=== PATIENT | female | born 1975 | race Caucasian/White ===

== ENCOUNTER 2017-03-28 20:55 | Observation (INO) | payer OTHER ==
[~2017-03-28] VITALS: Ht 177.8 cm; Wt 80.3 kg
[2017-03-28] MEDS ORDERED: CHOL100043 PO (22:30)
[2017-03-28] MEDS ORDERED: SUMA5SPR NS (22:32)
[2017-03-28] MEDS ORDERED: ONDA4TAB9 PO (22:34)
[2017-03-28] MEDS ORDERED: LEVO500C PO (22:35)
[2017-03-28 22:36] VITALS: BP 159/87; PULSE 87; RESP 22; O2SAT 98
[2017-03-28] MEDS ORDERED: Alum-Mag Hydrox-Simeth 30 mL Suspension PO PRN (23:15)
[2017-03-28] MEDS ORDERED: HYDROcodone-APAP 5-325 mg Tablet PO PRN (23:15)
[2017-03-28] MEDS ORDERED: Polyethylene Glycol (PEG) 17 Gm Powder PO PRN (23:15)
[2017-03-28] MEDS ORDERED: HYDROmorphone 1 mg/mL Inj IVPUSH PRN (23:20)
--- NOTE | 2017-03-28 23:34 | PCM.HPMED ---
Subjective Date of Service March 28, 2017 Primary Provider: Admitting Physician: Norberto Osman MD Primary Care Physician: Attending Physician: Norberto Osman MD Chief Complaint: nausea and vomiting History of Present Illness: 41-year-old female with history of cyclic vomiting syndrome presents from [facility] for nausea and vomiting 3 days. Patient was somewhat unwilling to answer questions, but denies any associated fevers, chest pain, shortness of breath, or diarrhea. She reports it came on gradually about 3 days ago, denies any known triggers. Reports she continues to use marijuana to help with her symptoms daily. She reports periumbilical abdominal pain. At [facility] she was given Dilaudid and Zofran, which she reports only mildly helped her symptoms. She also did receive Haldol which moderately improved her symptoms. She reports she was seen by a specialist down in [facility], but not nothing seems to help and they have not found a reason why. She reports her last episode this severe was about a month ago, and this seems to happen fairly repetitively, although random. Denies any new medications, alcohol usage, illicit drug usage. Patient does have an IUD in place No bed available at [facility] and was transferred to [facility] Review of Systems: Patient was not willing to cooperative with review of systems, only obtainable results are in the history of present illness Allergies Coded Allergies: latex (Verified Allergy, Unknown, 03/28/17) metoclopramide (Verified Allergy, Unknown, 03/28/17) promethazine (Verified Allergy, Unknown, 03/28/17) Home Medications Zofran Lorazepam CoQ10 PMH Cyclical vomiting syndrome Surgical History Reports gallbladder and appendix removed Family History Mother with colon cancer Social History Hx Alcohol Use: Yes Hx Substance Use: Yes (marijuana) Hx Tobacco Use: Yes (currently smoking E cigarettes) Living Arrangement: with Family Exam Vital Signs Vital Sign - Last Date Time Temp Pulse Resp B/P Pulse Ox O2 Delivery O2 Flow Rate FiO2 03/28/17 22:36 37.2 87 22 159/87 98 Room Air Exam General: Well-developed female who appears in moderate pain, alert and oriented although only answering questions intermittently HEENT: PERRLA, sclerae anicteric, oropharynx moist and mildly erythematous Neck: Soft, nontender, trachea midline CV: Regular rate and rhythm, no murmur or rubs noted Respiratory: CTA B, no wheezing or rhonchi, normal respiratory effort Abdomen: Soft, nondistended, normoactive bowel sounds, tender to palpation periumbilically, no guarding, no rebound, no rashes noted MSK: Patient unwilling to cooperate with muscle strength testing, no tender joints, no clubbing or peripheral edema Neuro: Grossly intact, moves all limbs, face symmetric Skin: Warm, dry, intact, no rashes noted Psych: Appears in pain and only intermittently answers questions with a head nod. Assessment & Plan 40-year-old female with history of cyclic vomiting syndrome presents with nausea and vomiting 3 days Intractable nausea and vomiting, Present on Admission Likely due to patient's CVS. DDx gastroparesis, gastritis, UTI, marijuana induced Will manage pain with IV Tylenol, Ketorolac to control pain. Will avoid opiates due to lack of effect and risk of worsening symptoms. IV Zofran prn nausea Hydroxyzine prn anxiety Consider Haldol if symptoms not improving with Dilaudid and Zofran Clear liquid diet IV normal saline 125mls/hr if inadequate PO intake Consider GI consultation if not improving Awaiting UA Marijuana dependence, POA Continue to encourage cessation Tylenol prn fever Bowel Regimen prn constipation CODE STATUS: Full resuscitation Disposition: Patient is admitted under observation status with expected length of stay less than 2 midnights due to risk of adverse events, decompensation, and medical complexity Pain Evaluation: Pain not Controlled VTE Prophylaxis: Sub-Q Enoxaparin, SCDs Resuscitation Status: CPR: Attempt Resuscitation Attending Statement The patient was seen and examined together with Dr. Garcia on 03/28 and I agree with the history, exam and plan as outlined in the note above. Abdulaziz Garcia DO March 28, 2017 23:33 Norberto Osman MD March 29, 2017 00:41
[2017-03-28] MEDS: Pantoprazole 4 mg/mL 10 mL Inj IVPUSH SCH (23:42)
[2017-03-28] MEDS: 0.9% Sodium Chloride 1,000 ML IV SCH (23:42)
[2017-03-28 23:43] LABS: BASOPHILS % (AUTO) 0.1 % (0-3); EOSINOPHILS % (AUTO) 0.1 % (0-5); MONOCYTES % (AUTO) 4.7 % (4-12); Mean Corpuscular Hemoglobin 32.9 pg (27.0-35.0); Platelet Count 179 bil/L (150-400)
[2017-03-28] MEDS: Ondansetron 2 mg/mL 2 mL Inj IVPUSH PRN (23:51)
[2017-03-29 06:20] VITALS: BP 121/75; PULSE 60; RESP 16; O2SAT 96
[2017-03-29 06:20] LABS: BASOPHILS % (AUTO) 0.1 % (0-3); EOSINOPHILS % (AUTO) 0.7 % (0-5); MONOCYTES % (AUTO) 7.1 % (4-12); Mean Corpuscular Hemoglobin 32.6 pg (27.0-35.0); Mean Corpuscular Volume 96.6 fL (81-100); NEUTROPHILS % (AUTO) 61.9 % (40-74); Platelet Count 179 bil/L (150-400)
[2017-03-29 07:01] LABS: APPEARANCE,URINE HAZY (CLEAR,HAZY); COLOR,URINE YELLOW (YELLOW)
[2017-03-29 07:02] LABS: OCCULT BLOOD,URINE SMALL (NEGATIVE); UROBILINOGEN,URINE NORMAL (NORMAL)
[2017-03-29] MEDS: 0.9% Sodium Chloride 1,000 ML IV SCH (07:14)
[2017-03-29] MEDS: Ondansetron 2 mg/mL 2 mL Inj IVPUSH PRN (07:47)
[2017-03-29] MEDS: Pantoprazole 4 mg/mL 10 mL Inj IVPUSH SCH (07:47)
--- NOTE | 2017-03-29 12:45 | PCM.DIMED ---
Discharge Instructions Date of Service March 29, 2017 Dates of Hospitalization March 28, 2017 at 22:21 Discharge Diagnosis Discharge Diagnosis cyclical vomiting. Diet No restrictions Activity No restrictions Call your provider Fever or Chills, Shortness of breath, Bleeding, Chest pain, Vomitting, Excessive diarrhea, Weakness (unilateral) Patient Instructions introduce diet as tolerated. continue using antiemetics as needed. Follow-up plan follow up with your primary care doctor within 1 week of discharge. Follow-up with PCP in: 1 week Benoit Clifton MD March 29, 2017 12:45
[2017-03-29] MEDS ORDERED: ONDA4TAB9 PO (12:46)
--- NOTE | 2017-03-29 12:52 | PCM.DC.MED ---
Discharge Summary Date of Service March 29, 2017 Dates of Hospitalization Date of Hospital Admission March 28, 2017 at 22:21 Date of Discharge: March 29, 2017 Providers: Admitting Physician: Norberto Osman MD Primary Care Physician: Nopnory Attending Physician: Norberto Osman MD Diagnosis at Time of Discharge Diagnosis at Time of Discharge cyclical vomiting. Consultations none Brief History 41-year-old female with history of cyclic vomiting syndrome presents from [facility] for nausea and vomiting 3 days. Patient was somewhat unwilling to answer questions, but denies any associated fevers, chest pain, shortness of breath, or diarrhea. She reports it came on gradually about 3 days ago, denies any known triggers. Reports she continues to use marijuana to help with her symptoms daily. She reports periumbilical abdominal pain. At [facility] she was given Dilaudid and Zofran, which she reports only mildly helped her symptoms. She also did receive Haldol which moderately improved her symptoms. She reports she was seen by a specialist down in [facility], but not nothing seems to help and they have not found a reason why. She reports her last episode this severe was about a month ago, and this seems to happen fairly repetitively, although random. Denies any new medications, alcohol usage, illicit drug usage. Patient does have an IUD in place No bed available at [facility] and was transferred to [facility] Course 40-year-old female with history of cyclic vomiting syndrome presents with nausea and vomiting 3 days Intractable nausea and vomiting, Present on Admission Likely due to patient's CVS. DDx gastroparesis, gastritis, UTI, marijuana induced Will manage pain with IV Tylenol, Ketorolac to control pain. Will avoid opiates due to lack of effect and risk of worsening symptoms. IV Zofran prn nausea Hydroxyzine prn anxiety Consider Haldol if symptoms not improving with Dilaudid and Zofran Clear liquid diet IV normal saline 125mls/hr if inadequate PO intake Consider GI consultation if not improving Awaiting UA Marijuana dependence, POA Continue to encourage cessation Tylenol prn fever Bowel Regimen prn constipation improved with antiemetics, and iv fluids. tolerating regular diet, pain free at the time of discharge. CODE STATUS: Full resuscitation Disposition: Patient is admitted under observation status with expected length of stay less than 2 midnights due to risk of adverse events, decompensation, and medical complexity Exam Vital Signs (Last) Date Time Temp Pulse Resp B/P Pulse Ox O2 Delivery O2 Flow Rate FiO2 03/29/17 06:20 37.0 60 16 121/75 96 Room Air Exam pt seen and examined on the of discharge. Test 03/28/17 23:32 03/29/17 05:50 03/29/17 06:42 Total Bilirubin 1.0mg/dL (0.0-1.2) Aspartate Amino Transf (AST/SGOT) 19U/L (0-50) Alanine Aminotransferase (ALT/SGPT) 10U/L (0-32) Alkaline Phosphatase 39U/L (25-150) Total Protein 7.3g/dL (6.4-8.4) Albumin 4.2g/dL (3.4-5.0) White Blood Count 7.2th/mm3 (3.8-10.1) Red Blood Count 3.80mil/mm3 (3.90-5.20) Hemoglobin 12.4g/dL (12.0-15.6) Hematocrit 36.7% (35.0-46.0) Mean Corpuscular Volume 96.6fL (81-100) Mean Corpuscular Hemoglobin 32.6pg (27.0-35.0) Mean Corpuscular Hemoglobin Concent 33.8% (32.0-37.0) Red Cell Distribution Width 12.5% (12.3-15.4) Platelet Count 179bil/L (150-400) Neutrophils (%) (Auto) 61.9% (40-74) Lymphocytes (%) (Auto) 29.9% (14-46) Monocytes (%) (Auto) 7.1% (4-12) Eosinophils (%) (Auto) 0.7% (0-5) Basophils (%) (Auto) 0.1% (0-3) Sodium Level 140mEq/L (134-144) Potassium Level 3.4mEq/L (3.5-5.2) Chloride Level 104mEq/L (97-108) Carbon Dioxide Level 22mmol/L (18-29) Blood Urea Nitrogen 5mg/dL (6-24) Creatinine 0.61mg/dL (0.57-1.00) Estimat Glomerular Filtration Rate 153mL/min (>59) Glucose Level 122mg/dL (60-99) Calcium Level 8.7mg/dL (8.5-10.1) Urine Color Yellow (YELLOW) Urine Appearance Hazy (CLEAR,HAZY) Urine pH 6.0 (5.0-8.0) Urine Specific [place] 1.027 (1.003-1.035) Urine Protein Tracemg/dL (NEG,TRACE) Urine Glucose (UA) Negativemg/dL (NEGATIVE) Urine Ketones 15mg/dL (NEGATIVE) Urine Occult Blood Small (NEGATIVE) Urine Nitrite Negative (NEGATIVE) Urine Bilirubin Negative (NEGATIVE) Urine Urobilinogen Normalmg/dL (NORMAL) Urine Leukocyte Esterase Negative (NEGATIVE) Urine RBC 3-10/hpf (0-2) Urine WBC 0-5/hpf (0-5) Urine Epithelial Cells Many/hpf (NONE-MOD) Urine Crystals Amorphous urates (NONE Urine Bacteria Few/hpf (NONE-FEW) Urine Hyaline Casts None/lpf (NONE) Urine Granular Casts None seen (NONE SEEN) Urine Waxy Casts None seen (NONE SEEN) Urine Red Blood Cell Casts None seen (NONE SEEN) Urine White Blood Cell Casts None seen (NONE SEEN) Urine Mucus Present (None Seen) Urine Trichomonas None seen (NONE SEEN) Urine Yeast None (NONE SEEN) Urinalysis Comment None Urine Culture Reflexed Not indicated Discharge Medications Discharge Medications Cholecalciferol (Vitamin D3) (Vitamin D) 1,000 Unit Tablet 1,000 UNIT PO DAILY ( Reported) Levocarnitine Tartrate (l-Carnitine) 500 Mg Capsule 500 MG PO Q2DAY (Reported) As needed Ondansetron ODT (Zofran ODT) 4 Mg Tablet 4 MG PO QID PRN PRN For Nausea Prescribed by: Mohit STOUT Sumatriptan (Imitrex) 5 Mg [place] 5 MG NS DAILY PRN PRN For Nausea (Reported) Followup Plan Disposition: discharge home. Follow-up plan follow up with your primary care doctor within 1 week of discharge. Discharge Diet: No restrictions Discharge Activity: No restrictions Patient Instructions introduce diet as tolerated. continue using antiemetics as needed. Follow-up with PCP in: 1 week Time spent >35minutes spent cordinating discharge managment. Benoit Clifton MD March 29, 2017 12:52
== END 2017-03-29 13:13 | disposition home or self-care (01) ==
LOC: MOC 22:21
PROVIDERS: ADMIT Hospitalist; ATTEND Hospitalist
DX: G43.A0 Cyclical vomiting, in migraine, not intractable (principal); F12.20 Cannabis dependence, uncomplicated; F17.200 Nicotine dependence, unspecified, uncomplicated
CPT/HCPCS: 36415; 80048; 80053; 81000; 85025; 96374; 96375; 96376; G0378; G0379; J1170; J1650; J2405; J7030